=== PATIENT | male | born 2000 | race African-American/Black ===

== ENCOUNTER 2023-03-12 02:52 | Emergency (ER) | payer OTHER ==
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
[2023-03-12 05:11] VITALS: BP 110/64
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
== END 2023-03-12 05:11 | disposition home or self-care (01) ==
LOC: ED 02:52
DX: S00.81XA Abrasion of other part of head, initial encounter (principal); Y04.2XXA Assault by strike against or bumped into by another person, initial encounter; Y93.9 Activity, unspecified; R10.9 Unspecified abdominal pain
CPT/HCPCS: 99284

== ENCOUNTER 2023-03-20 19:36 | Emergency (ER) | payer OTHER ==
[2023-03-20 19:50] VITALS: BP 144/97
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
== END 2023-03-20 20:39 | disposition left against medical advice (07) ==
LOC: ED 19:36
DX: Z00.8 Encounter for other general examination (principal); Z53.29 Procedure and treatment not carried out because of patient's decision for other reasons
CPT/HCPCS: 80053; 80307; 80320; 80329; 83690; 84443; 85025

== ENCOUNTER 2023-04-13 08:00 | Outpatient (CLI) | payer OTHER ==
[2023-04-13 16:25] LABS: BASOPHILS # (AUTO) 0.1 10^3/uL (0.0-0.1); BASOPHILS % (AUTO) 1.5 %; EOSINOPHILS # (AUTO) 0.3 10^3/uL (0.0-0.7); EOSINOPHILS % (AUTO) 4.1 %; HGB - HEMOGLOBIN 15.5 g/dL (14.0-18.0); LYMPHOCYTES # (AUTO) 2.4 10^3/uL (1.5-3.5); LYMPHOCYTES % (AUTO) 39.8 %; MEAN CORPUSCULAR HGB CONC 35.2 g/dL (32.0-36.0); MEAN CORPUSCULAR VOLUME 90.9 fL (80.0-94.0); MEAN PLATELET VOLUME 11.6 fL (7.4-11.4); MONOCYTES # (AUTO) 0.4 10^3/uL (0.0-1.0); MONOCYTES % (AUTO) 7.2 %; NEUTROPHILS # (AUTO) 2.9 10^3/uL (1.5-6.6); NEUTROPHILS % (AUTO) 47.2 %; PLT - PLATELET COUNT 190 10^3/uL (130-450); RED BLOOD COUNT 4.84 10^6/uL (4.70-6.10); RED CELL DISTRIBUTION WIDTH 12.2 % (12.0-15.0); WHITE BLOOD COUNT 6.1 x10^3/uL (4.8-10.8)
[2023-04-13 16:33] LABS: ALBUMIN 5.2 g/dL (3.2-5.5); ALBUMIN/GLOBULIN RATIO 2.3 (1.0-2.2); BILIRUBIN,TOTAL 0.8 mg/dL (0.2-1.0); CALCIUM 9.9 mg/dL (8.5-10.3); CREATININE 0.9 mg/dL (0.6-1.2); POTASSIUM 3.8 mmol/L (3.5-5.0); TOTAL PROTEIN 7.5 g/dL (6.7-8.2)
[2023-04-14 08:10] LABS: RPR Non Reactive (Non Reactive)
== END 2023-04-13 23:59 | disposition home or self-care (01) ==
LOC: LAB.R 08:00
PROVIDERS: ATTEND Registered Nurse
DX: Z01.89 Encounter for other specified special examinations (principal)
CPT/HCPCS: 80053; 85025; 86592